=== PATIENT | male | born 2000 | race Caucasian/White ===

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

== ENCOUNTER → 2023-11-18 | Outpatient (CLI) | payer BC | LOC: M WUC 12:14 | PROVIDERS: ATTEND Internal Medicine | DX: M54.59 Other low back pain (principal) ==